=== PATIENT | male | born 1990 | race Caucasian/White ===

== ENCOUNTER 2017-11-14 14:34 | Emergency (ER) | payer OTHER ==
[~2017-11-14] VITALS: Ht 182.9 cm; Wt 83.9 kg
--- OUTSIDE RECORDS SUMMARY | 2017-11-14 14:42 | XMS REPORT | Continuity of Care Document ---
Author Author [facility] Address Unknown Phone Unavailable Allergies There is no data. Medications There is no data. Problems Date Dx Coded Attending Type Code Diagnosis Diagnosed By 10/28/2013 KEITH AGUIRRE MD 706.2 SEBACEOUS CYST Procedures Code [place] [address] ROUTINE VENIPUNCTURE 10/28/2013 30277 [facility] 10/28/2013 31595 HEP B SURFACE ANTIGEN ([facility] ) 10/28/2013 Results There is no data. Encounters ACCT No. Visit Date/Time Discharge Status Pt. Type Provider Facility Loc./Unit Complaint [id number] 10/28/2013 16:28:00 10/28/2013 23:59:59 CLS Outpatient KEITH AGUIRER MD
--- OUTSIDE RECORDS SUMMARY | 2017-11-14 14:42 | XMS REPORT ---
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 Info Not Available Non Drug Allergy Problems Problem Type Condition Code Onset Dates Condition Status Assessment Screen for STD (sexually transmitted disease) Z11.3 Active Problem Sebaceous cyst 706.2 Active Medications Medication Code System Code Instructions Start Date End Date Status Dosage Multivitamin [facility] [id number] Orally not defined Procedures Procedure Coding System Code Date Office Visit, Est Pt., Level 3 CPT-4 36561 January 01, 2016 Vital Signs Date/Time: January 01, 2016 Temperature 98.2 F Weight 175.2 lbs Height 72 in BMI 23.76 Index Blood Pressure Diastolic 96 mmHg Blood Pressure Systolic 130 mmHg Cardiac Monitoring Heart Rate 80 bpm Results No Known Results Summary Purpose [employer] Submission
[2017-11-14 18:00] LABS: BASOPHILS % (AUTO) 1 % (0-10); EOSINOPHILS # (AUTO) 0.2 10^3/uL (0.0-0.3); EOSINOPHILS % (AUTO) 2 % (0-10); HEMATOCRIT 43 % (40-54); HEMOGLOBIN 15.6 G/DL (13.3-17.7); LYMPHOCYTES # (AUTO) 2.2 X 10^3 (1.0-4.0); LYMPHOCYTES % (AUTO) 34 % (12-44); MEAN CORPUSCULAR HEMOGLOBIN 30 PG (25-34); MEAN CORPUSCULAR HGB CONC 36 G/DL (32-36); MEAN CORPUSCULAR VOLUME 84 FL (80-99); MEAN PLATELET VOLUME 9.8 FL (7.4-10.4); MONOCYTES # (AUTO) 0.6 X 10^3 (0.0-1.0); MONOCYTES % (AUTO) 10 % (0-12); NEUTROPHILS # (AUTO) 3.5 X 10^3 (1.8-7.8); NEUTROPHILS % (AUTO) 54 % (42-75); PLATELET COUNT 326 10^3/uL (130-400); RED BLOOD COUNT 5.14 10^6/uL (4.35-5.85); WHITE BLOOD COUNT 6.6 10^3/uL (4.3-11.0)
--- NOTE | 2017-11-14 18:07 | Diagnostic Imaging Report ---
CLINICAL INDICATION: Patient with left-sided chest pain x2 days. EXAM: Portable chest x-ray, upright view. COMPARISONS: None. FINDINGS: Lungs/pleura: There are multiple small dense nodular areas overlying both lungs which may represent calcified granuloma versus vessels on end. Lungs are clear. There is no pneumothorax. There is no pleural effusion. Mediastinum: Unremarkable. Pulmonary vasculature: Unremarkable. Heart: Unremarkable. Bones/extrathoracic soft tissue: Unremarkable. IMPRESSION: There is no radiographic evidence of acute cardiopulmonary process. Dictated by: Dictated on workstation # [id number]
[2017-11-14 18:10] LABS: INR 0.9 (0.8-1.4); PROTHROMBIN TIME PATIENT 12.5 SEC (12.2-14.7)
[2017-11-14 18:18] LABS: ALANINE AMINOTRANSFERASE 85 U/L (0-55); ALBUMIN 4.5 GM/DL (3.2-4.5); ALKALINE PHOSPHATASE 75 U/L (40-136); BILIRUBIN,TOTAL 0.6 MG/DL (0.1-1.0); BUN/CREATININE RATIO 22; CALCIUM 9.2 MG/DL (8.5-10.1); CARBON DIOXIDE 24 MMOL/L (21-32); CHLORIDE 107 MMOL/L (98-107); CREATININE SERUM 0.97 MG/DL (0.60-1.30); GFR ESTIMATED > 60; GLUCOSE 75 MG/DL (70-105); POTASSIUM 4.2 MMOL/L (3.6-5.0); SODIUM 141 MMOL/L (135-145); TOTAL PROTEIN 7.1 GM/DL (6.4-8.2)
[2017-11-14] MEDS ORDERED: LORazepam INJ 2 MG/ML (ATIVAN) VIAL IM ONE (19:45)
--- NOTE | 2017-11-14 19:46 | ED Cardiac General ---
History of Present Illness General Chief Complaint: Chest Wall/Rib Pain Stated Complaint: CHEST PAIN Nursing Triage Note: Pt c/o intermittent L anterior CP. Pt reports pain started yesterday and comes and goes throughout the day. Pt denies pain at this time. Pt reports pain goes away with taking a deep breath or if he hits himself on chest. Pt also reported pain got worse after drinking coffee. Source: patient, spouse Exam Limitations: no limitations History of Present Illness Date Seen by Provider: Nov 14, 2017 Time Seen by Provider: 19:43 Allergies and Home Medications Allergies Coded Allergies: No Known Drug Allergies (Unverified , 11/14/17) Past Nofssqn-Gdwlgd-Lthxfj Hx Patient Social History Alcohol Use: Occasionally Uses Recreational Drug Use: No Smoking Status: Never a Smoker Recent Foreign Travel: No Contact w/Someone Who Travel: No Recent Infectious Disease Expo: No Recent Hopitalizations: No Seasonal Allergies Seasonal Allergies: No Surgeries History of Surgeries: Yes (dental) Respiratory History of Respiratory Disorde: No Cardiovascular History of Cardiac Disorders: No Neurological History of Neurological Disord: No Genitourinary History of Genitourinary Disor: No Gastrointestinal History of Gastrointestinal Di: No Musculoskeletal History of Musculoskeletal Dis: No Endocrine History of Endocrine Disorders: No HEENT History of HEENT Disorders: No Cancer History of Cancer: No Psychosocial History of Psychiatric Problem: No Integumentary History of Skin or Integumenta: No Blood Transfusions History of Blood Disorders: No Physical Exam Vital Signs Vital Signs - First Documented 11/14/17 16:23 Temp 97.8 Pulse 80 Resp 18 B/P (MAP) 128/71 (90) Pulse Ox 99 O2 Delivery Room Air Capillary Refill : Less Than 3 Seconds Progress/Results/Core Measures Results/Orders Lab Results Laboratory Tests Test 11/14/17 17:50 Range/Units White Blood Count 6.6 4.3-11.0 10^3/uL Red Blood Count 5.14 4.35-5.85 10^6/uL Hemoglobin 15.6 13.3-17.7 G/DL Hematocrit 43 40-54 % Mean Corpuscular Volume 84 80-99 FL Mean Corpuscular Hemoglobin 30 25-34 PG Mean Corpuscular Hemoglobin Concent 36 32-36 G/DL Red Cell Distribution Width 13.0 10.0-14.5 % Platelet Count 326 130-400 10^3/uL Mean Platelet Volume 9.8 7.4-10.4 FL Neutrophils (%) (Auto) 54 42-75 % Lymphocytes (%) (Auto) 34 12-44 % Monocytes (%) (Auto) 10 0-12 % Eosinophils (%) (Auto) 2 0-10 % Basophils (%) (Auto) 1 0-10 % Neutrophils # (Auto) 3.5 1.8-7.8 X 10^3 Lymphocytes # (Auto) 2.2 1.0-4.0 X 10^3 Monocytes # (Auto) 0.6 0.0-1.0 X 10^3 Eosinophils # (Auto) 0.2 0.0-0.3 10^3/uL Basophils # (Auto) 0.0 0.0-0.1 10^3/uL Prothrombin Time 12.5 12.2-14.7 SEC INR Comment 0.9 0.8-1.4 Sodium Level 141 135-145 MMOL/L Potassium Level 4.2 3.6-5.0 MMOL/L Chloride Level 107 98-107 MMOL/L Carbon Dioxide Level 24 21-32 MMOL/L Anion Gap 10 5-14 MMOL/L Blood Urea Nitrogen 21 H 7-18 MG/DL Creatinine 0.97 0.60-1.30 MG/DL Estimat Glomerular Filtration Rate > 60 BUN/Creatinine Ratio 22 Glucose Level 75 70-105 MG/DL Calcium Level 9.2 8.5-10.1 MG/DL Total Bilirubin 0.6 0.1-1.0 MG/DL Aspartate Amino Transf (AST/SGOT) 62 H 5-34 U/L Alanine Aminotransferase (ALT/SGPT) 85 H 0-55 U/L Alkaline Phosphatase 75 40-136 U/L Troponin I < 0.30 <0.30 NG/ML Total Protein 7.1 6.4-8.2 GM/DL Albumin 4.5 3.2-4.5 GM/DL My Orders Orders - DASH BROTHERS Lorazepam Injection (Ativan Injection) (11/14/17 19:45) Medications Given in ED Current Medications Medications Dose Ordered Sig/Morgan Route Start Time Stop Time Status Last Admin Dose Admin Lorazepam 1 mg ONCE ONCE IM 11/14/17 19:45 11/14/17 19:46 DC 11/14/17 19:55 1 MG Vital Signs/I&O Vital Sign - Last 12Hours 11/14/17 16:23 Temp 97.8 Pulse 80 Resp 18 B/P (MAP) 128/71 (90) Pulse Ox 99 O2 Delivery Room Air Blood Pressure Mean: 90 Departure Impression Impression: Primary Impression: Chest wall pain Additional Impression: Stress at work Disposition: 01 HOME, SELF-CARE Condition: Improved Departure-Patient Inst. Decision time for Depature: 20:05 Referrals: NO,LOCAL PHYSICIAN (PCP/Family) Primary Care Physician Patient Instructions: Chest Pain (DC), Relaxation Techniques, Stress Add. Discharge Instructions: All discharge instructions reviewed with patient and/or family. Voiced understanding. Medications as instructed. Tylenol Extra Strength over-the- counter as directed for pain. Ibuprofen 800 mg by mouth every 8 hours as needed for pain. Avoid caffeine. Avoid stressful situations. Avoid carbonated beverages. Alternate ice packs and heating pads as needed for pain. Follow-up with the family practitioner of your choice for recheck as an outpatient and to establish care. Return to the emergency department for worsened pain, shortness of air, dizziness, numbness, weakness, or any other concerns. Scripts Hydroxyzine Pamoate (Vistaril) 25 Mg Capsule 25 MG PO Q4H Y for ANXIETY, #30 CAP 0 Refills Prov: DASH BROTHERS 11/14/17 Work/School Note: Local Medical Staff Listing DASH BROTHERS Nov 14, 2017 19:46
[2017-11-14] MEDS ORDERED: HYDR25CA PO (20:08)
[2017-11-14 20:18] VITALS: BP 128/71
== END 2017-11-14 20:20 | disposition home or self-care (01) ==
LOC: EDUNIT# 14:34 → ER 14:39
DX: R07.89 Other chest pain (principal); F43.0 Acute stress reaction
CPT/HCPCS: 36415; 71045; 80053; 84484; 85025; 85610; 96372